=== PATIENT | male | born 1955 | race Caucasian/White ===

== ENCOUNTER 2023-12-05 13:14 | Inpatient (IN) | payer OTHER, MEDICARE, MEDICAID ==
[~2023-12-05] VITALS: Ht 177.8 cm; Wt 148.9 kg
[2023-12-05 14:20] LABS: Basophils # (auto) 0.1 10 ^3/uL (0-0.2)
[2023-12-05 14:21] LABS: Basophils % (auto) 0.7 % (0.0-2.0); Eosinophils # (auto) 0.1 10 ^3/uL (0-0.8); Eosinophils % (auto) 1.5 % (0.0-7.0); Hematocrit 53.4 % (41.0-53.0); Hemoglobin 17.4 g/dL (13.5-17.5); Lymphocytes # (auto) 1.9 10 ^3/uL (0.4-5.4); Lymphocytes % (auto) 18.5 % (10.0-50.0); Mean Corpuscular Hemoglobin 30.2 pg (28.0-32.0); Mean Corpuscular Hgb Conc. 32.6 g/dL (32.0-36.0); Mean Corpuscular Volume 92.7 fL (80.0-100.0); Monocytes % (auto) 9.8 % (0.0-12.0); Neutrophils % (auto) 69.5 % (37.0-80.0); Nucleated Red Blood Cells % 0.2 %; Red Blood Cells 5.76 10^6/uL (4.5-5.90); Red Cell Distribution Width 15.4 % (11.8-14.3)
[2023-12-05 14:37] LABS: Alanine Aminotransferase 15 U/L (7-40); Alkaline Phosphatase 93 U/L (46-116); Anion Gap 5 (5-15); Aspartate Aminotransferase 16 U/L (13-40); BUN/Creatinine Ratio 13.2 (10.0-20.0); Blood Urea Nitrogen 10 mg/dL (9-23); Calcium 8.9 mg/dL (8.5-10.1); Carbon Dioxide 25 mmol/L (20-30); Chloride 110 mmol/L (98-107); Glucose 98 mg/dL (74-106); Potassium 4.3 mmol/L (3.5-5.1); Sodium 140 mmol/L (136-145)
[2023-12-05 14:38] LABS: Bilirubin, Total 0.4 mg/dL (0.2-1.0)
[2023-12-05 14:45] VITALS: PULSE 77; RESP 22; O2SAT 97
[2023-12-05 19:40] VITALS: PULSE 80; RESP 21; O2SAT 94
[2023-12-06] MEDS: LIDOCAINE 4MG/ML IV SOLN 500 ML IV SCH (08:10)
[2023-12-06] MEDS ORDERED: NITROGLYCERIN 0.4 MG SL TAB SL PRN (08:45)
[2023-12-06] MEDS ORDERED: ACETAMINOPHEN 325 MG TAB PO PRN (08:45)
[2023-12-06] MEDS ORDERED: HYDROcodone-ACET 5/325MG TAB PO PRN (08:45)
[2023-12-06] MEDS ORDERED: MORPHINE SULFATE INJ 2 MG/ml SYRG IV PRN ×2 (08:45)
[2023-12-06 09:01] LABS: Basophils # (auto) 0.1 10 ^3/uL (0-0.2); Basophils % (auto) 0.9 % (0.0-2.0); Eosinophils # (auto) 0.2 10 ^3/uL (0-0.8); Eosinophils % (auto) 1.6 % (0.0-7.0); Hematocrit 52.4 % (41.0-53.0); Hemoglobin 17.2 g/dL (13.5-17.5); Lymphocytes # (auto) 1.9 10 ^3/uL (0.4-5.4); Lymphocytes % (auto) 19.2 % (10.0-50.0); Mean Corpuscular Hemoglobin 30.2 pg (28.0-32.0); Mean Corpuscular Hgb Conc. 32.9 g/dL (32.0-36.0); Mean Corpuscular Volume 91.9 fL (80.0-100.0); Monocytes % (auto) 10.2 % (0.0-12.0); Neutrophils # (auto) 6.7 10 ^3/uL (1.6-8.6); Neutrophils % (auto) 68.1 % (37.0-80.0); Nucleated Red Blood Cells % 0.3 %; Red Blood Cells 5.71 10^6/uL (4.5-5.90); Red Cell Distribution Width 15.5 % (11.8-14.3); White Blood Cell 9.8 10^3/uL (4.4-10.8)
[2023-12-06 09:25] LABS: LDL Cholesterol 134 mg/dL (< 100); Triglycerides 161 mg/dL (< 150)
[2023-12-06 09:27] LABS: Cholesterol 181 mg/dL (< 200); HDL Cholesterol 25 mg/dL (40-59)
[2023-12-06] MEDS: ENOXAPARIN SOD 40 MG/0.4 ML SYRINGE SC SCH (10:10)
[2023-12-06] MEDS: SODIUM CHLORIDE 0.9% 1,000 ML IV ONE (11:08)
[2023-12-06] MEDS: MAGNESIUM SULFATE 1GM/100ML 100 ML IV ONE (11:08)
[2023-12-06] MEDS: METOPROLOL TARTRATE 25 MG TAB PO ONE (11:40)
[2023-12-06 12:10] LABS: Chloride 105 mmol/L (98-107); Potassium 4.3 mmol/L (3.5-5.1); Sodium 139 mmol/L (136-145)
[2023-12-06 12:11] LABS: Anion Gap 5 (5-15); Carbon Dioxide 29 mmol/L (20-30)
[2023-12-06 12:12] LABS: Calcium 8.9 mg/dL (8.5-10.1)
[2023-12-06 12:16] LABS: Glucose 117 mg/dL (74-106)
[2023-12-06 12:17] LABS: BUN/Creatinine Ratio 20.3 (10.0-20.0); Blood Urea Nitrogen 15 mg/dL (9-23)
[2023-12-06] MEDS: LORazepam 2MG/ML-1ML VIAL IM PRN (15:10)
[2023-12-06] MEDS: HALOPERIDOL LACTATE 5 MG/ML INJ VIAL IM ONE (15:15)
[2023-12-06] MEDS: diphenhdrAMINE HCL 50 MG/1 ML VL IM ONE (15:15)
[2023-12-06 15:19] LABS: Urine Bacteria MANY /hpf (None Seen); Urine Blood Negative /uL (Negative); Urine Clarity HAZY (Clear); Urine Color Yellow (Yellow); Urine Mucus FEW (None Seen); Urine Protein, UAD Negative (Negative); Urine Specific Gravity 1.018 (1.001-1.035); Urine Urobilinogen Normal (Negative); Urine WBC 113 /hpf (0 - 3); Urine pH 5.5 (5.0-8.0)
[2023-12-06 15:25] LABS: Amphetamine Screen, Urine Neg (NEGATIVE); Barbiturate Scree,Urine Neg (NEGATIVE); Benzodiazephine Screen, Urine Neg (NEGATIVE); Cocaine Screen, Urine Neg (NEGATIVE)
[2023-12-06 15:26] LABS: Cannabinoid Screen, Urine Neg (NEGATIVE); Opiate Scree,Urine Neg (NEGATIVE); Phencyclidine Screen, Urine Neg (NEGATIVE)
[2023-12-06 20:00] VITALS: PULSE 94; RESP 17; O2SAT 96
[2023-12-06] MEDS: LORazepam 2MG/ML-1ML VIAL IM ONE (20:56)
[2023-12-06] MEDS: LORazepam 2MG/ML-1ML VIAL ONE (20:56)
[2023-12-06] MEDS: METOPROLOL TARTRATE 25 MG TAB PO SCH (22:30)
[2023-12-06] MEDS: ENOXAPARIN SOD 150 MG/1 ML SYRINGE SC SCH (22:30)
[2023-12-06] MEDS: ATORVASTATIN 20 MG TAB PO SCH (22:30)
[2023-12-07 06:32] LABS: Alanine Aminotransferase 12 U/L (7-40); Albumin 3.5 g/dL (3.2-4.8); Alkaline Phosphatase 79 U/L (46-116); Anion Gap 6 (5-15); Aspartate Aminotransferase 13 U/L (13-40); BUN/Creatinine Ratio 11.3 (10.0-20.0); Bilirubin, Total 0.5 mg/dL (0.2-1.0); Blood Urea Nitrogen 9 mg/dL (9-23); Calcium 8.7 mg/dL (8.5-10.1); Carbon Dioxide 29 mmol/L (20-30); Chloride 105 mmol/L (98-107); Glucose 110 mg/dL (74-106); Potassium 3.6 mmol/L (3.5-5.1); Sodium 140 mmol/L (136-145); Total Protein 5.3 g/dL (5.7-8.2)
[2023-12-07 07:52] VITALS: PULSE 99; RESP 20; O2SAT 97
[2023-12-07] MEDS: MAGNESIUM OXIDE 400 MG TAB PO SCH (10:36)
[2023-12-07] MEDS: ADENOSINE IV STA (11:57)
[2023-12-07] MEDS: GIVE UN DILUTED IV STA (11:57)
[2023-12-07] MEDS: cefTRIAXone 1GM/50ML D5W 50 ML IV ONE (15:09)
[2023-12-07 22:40] VITALS: BP 107/87; PULSE 88; RESP 20; TEMP 97.6; O2SAT 96
[2023-12-07 22:45] VITALS: BP 120/74; PULSE 83; RESP 18; TEMP 97.7; O2SAT 97
[2023-12-08] VITALS (7 sets, daily range): BP systolic 95–128; BP diastolic 53–87; PULSE 53–112; RESP 19–95; TEMP 97.7–98.7; O2SAT 20–98
[2023-12-08] MEDS ORDERED: QUET50TA PO
[2023-12-08] MEDS ORDERED: DIVA500T3 PO
[2023-12-08] MEDS ORDERED: VENL1TAB99 PO
[2023-12-08] MEDS ORDERED: APIX5TAB PO
[2023-12-08] MEDS ORDERED: METO-289 PO
[2023-12-08] MEDS ORDERED: METH-1181 PO
[2023-12-08] MEDS ORDERED: DIVA250T4 PO
[2023-12-08] MEDS ORDERED: CHOL20007 PO
[2023-12-08] MEDS ORDERED: HALOPERIDOL LACTATE 5 MG/ML INJ VIAL IM ONE (01:00)
[2023-12-08 06:17] LABS: Basophils # (auto) 0.1 10 ^3/uL (0-0.2); Basophils % (auto) 1.1 % (0.0-2.0); Eosinophils # (auto) 0.2 10 ^3/uL (0-0.8); Hemoglobin 16.6 g/dL (13.5-17.5); Lymphocytes # (auto) 1.5 10 ^3/uL (0.4-5.4); Lymphocytes % (auto) 17.8 % (10.0-50.0); Mean Corpuscular Hemoglobin 30.3 pg (28.0-32.0); Mean Corpuscular Hgb Conc. 33.2 g/dL (32.0-36.0); Mean Corpuscular Volume 91.2 fL (80.0-100.0); Monocytes % (auto) 11.5 % (0.0-12.0); Neutrophils # (auto) 5.5 10 ^3/uL (1.6-8.6); Neutrophils % (auto) 66.6 % (37.0-80.0); Nucleated Red Blood Cells % 0.1 %; Red Blood Cells 5.48 10^6/uL (4.5-5.90); Red Cell Distribution Width 15.3 % (11.8-14.3); White Blood Cell 8.3 10^3/uL (4.4-10.8)
[2023-12-08 06:41] LABS: Chloride 106 mmol/L (98-107); Potassium 3.9 mmol/L (3.5-5.1); Sodium 139 mmol/L (136-145)
[2023-12-08 06:42] LABS: Anion Gap 6 (5-15); Calcium 8.9 mg/dL (8.5-10.1); Carbon Dioxide 27 mmol/L (20-30)
[2023-12-08 06:47] LABS: BUN/Creatinine Ratio 9.5 (10.0-20.0); Blood Urea Nitrogen 7 mg/dL (9-23); Glucose 111 mg/dL (74-106)
[2023-12-08] MEDS: cefTRIAXone 1GM/50ML D5W 50 ML IV SCH (09:00)
[2023-12-08 09:18] LABS: Albumin 3.6 g/dL (3.2-4.8)
[2023-12-08 09:19] LABS: Bilirubin, Direct 0.2 mg/dL (<0.3); Bilirubin, Total 0.5 mg/dL (0.2-1.0); Total Protein 5.2 g/dL (5.7-8.2)
[2023-12-09 05:00] VITALS: BP 115/60; PULSE 58; RESP 20; TEMP 97.6; O2SAT 92
[2023-12-09 08:00] VITALS: PULSE 87
[2023-12-09 09:00] VITALS: BP 106/72; PULSE 61; RESP 17; TEMP 97.2; O2SAT 93
[2023-12-09] MEDS ORDERED: CIPR-173 PO (11:52)
[2023-12-09 13:00] VITALS: BP 99/62; PULSE 65; RESP 18; TEMP 97.8; O2SAT 92
[2023-12-09 17:00] VITALS: BP 109/74; PULSE 74; RESP 21; TEMP 97.7; O2SAT 94
== END 2023-12-09 19:40 | disposition hospice, home (50) | DRG 872 ==
LOC: ER 13:14 → EDBD 13:14 → TELE 12-06 08:44 → TELE-WESTW 12-07 22:41
PROVIDERS: ADMIT Nurse Practitioner Family; ATTEND Family Medicine
DX: A41.9 Sepsis, unspecified organism (principal); N39.0 Urinary tract infection, site not specified; I48.19 Other persistent atrial fibrillation; I47.20 Ventricular tachycardia, unspecified; Z68.42 Body mass index [BMI] 45.0-49.9, adult; M54.50 Low back pain, unspecified; F17.200 Nicotine dependence, unspecified, uncomplicated; E66.01 Morbid (severe) obesity due to excess calories; E78.5 Hyperlipidemia, unspecified; J44.9 Chronic obstructive pulmonary disease, unspecified; G89.29 Other chronic pain; I11.0 Hypertensive heart disease with heart failure; I50.9 Heart failure, unspecified; I49.3 Ventricular premature depolarization; Z90.49 Acquired absence of other specified parts of digestive tract; Z91.199 Patient's noncompliance with other medical treatment and regimen due to unspecified reason; Z79.01 Long term (current) use of anticoagulants
CPT/HCPCS: 36415; 71045; 78452; 80048; 80053; 80061; 80076; 80307; 81001; 82607; 83036; 83735; 83880; 84443; 84484; 85025; 85379; 87040; 87081; 93005; 93017; 93970; 96360; 97110; 97163; G0378; J0153